=== PATIENT | female | born 1985 | race Caucasian/White ===

== ENCOUNTER 2016-07-22 17:37 | Emergency (ER) | payer MEDICARE, MEDICAID ==
[~2016-07-22] VITALS: Ht 175.2 cm; Wt 81.6 kg
[~2016-07-22 17:37] MED LIST: 'carisoprodol350 MG PO; AMITRIPTYLINE10 MG PO; BACLOFEN20 M1 PO; BACLOFEN20 MG PO; CIPRO500 MG PO; CLINDAMYCIN HC300 MG PO; DEPO PROVER150 MG/M1 IM; DIFLUCAN150 MG PO; HYDROMORPHONE H PO; LYRICA100 MG PO; LYRICA300 MG PO; OXYBUTYNIN CHLOR5 MG PO; PERCOCET 325 MG1 TAB PO; TRAZODONE50 MG PO; VESICARE10 MG PO; VESICARE5 MG PO; VIBRAMYCIN100 MG PO; [UNRECOGNIZED DRUG - REMARK]
[2016-07-22 18:34] LABS: BILIRUBIN NEGATIVE (NEGATIVE); BLOOD 3+ (NEGATIVE); CLARITY CLOUDY (CLEAR); COLOR YELLOW (YELLOW); GLUCOSE NEGATIVE (NEGATIVE); KETONE NEGATIVE (NEGATIVE); LEUKO ESTERASE 2+ (NEGATIVE); NITRITE POSITIVE (NEGATIVE); PROTEIN 2+ (NEGATIVE); UROBILINOGEN 0.2 E.U./dl (0.2-1.0)
[2016-07-22 18:51] LABS: BACTERIA 4+; RBC TNTC rbc/hpf (0-2); URINE REFLEX COMMENT YES (NO); WBC TNTC wbc/hpf (0-5)
[2016-07-22 18:54] LABS: BASO % 0.2 % (0.0-1.0); EOS # 0.1 10*3/uL (0.0-0.4); EOS % 0.5 % (1.0-4.0); HEMATOCRIT 39.8 % (37.0-47.0); HEMOGLOBIN 13.2 g/dl (12.0-16.0); LYMPH # 0.8 10*3/uL (1.3-4.4); LYMPH % 6.4 % (27.0-41.0); MEAN CELL VOLUME 87.3 fl (81.0-99.0); MEAN CORPUSCULAR HGB 28.9 pg (27.0-31.0); MEAN CORPUSCULAR HGB CONC 33.2 g/dl (33.0-37.0); MEAN PLATELET VOLUME 11.4 fl (9.6-12.3); MONO # 0.5 10*3/uL (0.1-1.0); MONO % 4.3 % (3.0-9.0); NEUT # 10.9 10*3/uL (2.3-7.9); NEUT % 88.4 % (47.0-73.0); PLATELET COUNT AUTOMATED 181 10*3/uL (130-400); RED BLOOD COUNT 4.56 10*6/uL (4.10-5.10); RED CELL DISTRI WIDTH 13.1 % (0-14.5); WHITE BLOOD COUNT 12.3 10*3/uL (4.8-10.8)
[2016-07-22 19:11] LABS: ALKALINE PHOSPHATASE 148 U/L (45-117); BILIRUBIN, TOTAL 0.4 mg/dl (0.2-1.0); BUN 13 mg/dl (7-24); CARBON DIOXIDE 27 mmol/L (21-32); CHLORIDE 106 mmol/L (98-107); EST GLOM FILT AFRICAN AMERICAN > 60 ml/min; GLUCOSE 101 mg/dL (65-99); POTASSIUM 4.1 mmol/L (3.5-5.1); SGOT/AST 134 IU/L (3-35); SGPT/ALT 152 U/L (12-78); SODIUM 141 mmol/L (136-145); TOTAL PROTEIN 7.7 gm/dL (6.4-8.2)
[2016-07-22] MEDS ORDERED: BACTRIM DS 8001 TA1 PO (20:08)
[2016-07-22] MEDS ORDERED: ZOFRAN ODT4 MG SL (20:13)
== END 2016-07-22 20:49 | disposition home or self-care (01) ==
LOC: ED 17:37
PROVIDERS: Physician Assistant
DX: N30.01 Acute cystitis with hematuria (principal); Z98.890 Other specified postprocedural states